=== PATIENT | male | born 1940 | race Hispanic/Latino ===

== ENCOUNTER 2024-07-26 08:30 | Outpatient (RCR) | payer OTHER, SELFPAY | END 2024-07-26 10:30 | LOC: PUL 08:30 | PROVIDERS: PCP Family Medicine; Referring Provider Internal Medicine Critical Care Medicine; Visit Provider Internal Medicine Critical Care Medicine | DX: J84.89 Other specified interstitial pulmonary diseases (principal); J96.91 Respiratory failure, unspecified with hypoxia | CPT/HCPCS: G0237; G0238 ==